=== PATIENT | male | born 1960 | race Caucasian/White ===

== ENCOUNTER 2017-05-01 13:08 | Emergency (ER) | payer OTHER, MEDICAID ==
[2017-05-01 13:24] VITALS: BP 120/79; PULSE 94; RESP 20; TEMP 97.5; O2SAT 96
--- NOTE | 2017-05-01 13:33 | EDPHY ---
H & P Stated Complaint: R FOOT AND L KNEE PAIN FOR MONTHS/HAS BEEN SEEN FOR SAME AT [place] HPI/ROS: CHIEF COMPLAINT: Left knee pain, right foot pain HISTORY OF PRESENT ILLNESS: Patient complains of left knee pain x3 weeks and right foot pain times several days. Left knee pain started he thinks after attempting to catch up with the bus. He felt a sudden onset of pain over the knee that is medial. It is worse with palpation and movement. He was seen at the [facility] with a reportedly normal x-ray. Since then his right foot is began to bother him. He is not sure when or how he hurt it but thinks that he did. He has no numbness or tingling. No fever chills. It is too severe to walk on. It has minimal improvement rest. Has not yet been evaluated for the foot. He has been taking ibuprofen and Tylenol without improvement. He was not referred to Orthopedics from [place]. No other associated complaints or modifying factors REVIEW OF SYSTEMS: Ten systems reviewed and are negative unless otherwise noted in the HPI PCP: [facility] SPECIALISTS: None PAST MEDICAL HISTORY: Traumatic brain injury, borderline personality, PTSD, depression, C2 radiculopathy, low back pain, porphyria, epilepsy PAST SURGICAL HISTORY: Craniotomy, maxillary fracture reconstruction, shoulder reconstruction, vats, left inguinal hernia repair SOCIAL HISTORY: Occasional smoker. Occasional alcohol. Occasional cocaine use. Currently homeless FAMILY HISTORY: Noncontributory EXAMINATION General Appearance: Alert, no distress, unkempt Head: normocephalic, atraumatic Eyes: Pupils equal and round, no conjunctival pallor or injection ENT, Mouth: Mucous membranes moist. Airway patent Respiratory: No retractions or distress. Cardiovascular: Regular rate. Brisk cap refill. Symmetric DP and PT pulses 2+ . Neurological: A&O, nonfocal, antalgic but steady gait. No foot drop. Normal proprioception of the right great toe. Skin: Warm and dry, no rash. No lacerations abrasions or contusions Extremities: Tenderness of the left knee medially and tenderness of the right midfoot over the 1st 3 metatarsals. The left knee exhibits no deformity. There is pain with valgus stress. No instability. Negative Chun and drawer test. Range of motion is intact and symmetric to the right leg. The right foot tenderness does not reveal any deformity. Range of motion of the ankle is intact. He is neurovascular intact distally there is a pain. Psychiatric: Mood and affect normal DIFFERENTIAL DIAGNOSES: Including but not limited to fracture, sprain, strain, contusion, MCL sprain, meniscus injury MDM: 1:33 p.m. Left knee pain of several weeks duration with a sprain injury, right foot pain of several days duration with unknown injury. He thinks that he heard but he does not know exactly when. He is neurovascular intact. I do not suspect that there are any acute fractures or dislocation, but I have ordered x-ray of the foot. X-ray of the knee has already been performed recently and I feel that he would not benefit from repeat x-ray. I discussed with counseling case manager to provide assistance as he is homeless. 2:00 p.m. X-ray as interpreted by me, without the aid of the radiologist reveals no acute fracture dislocation. I will order a Bharath boot for the right foot pain. Will place him in an Guillaume wrap on the left knee and provide crutches. Case management will see the patient to ensure that he has resources for his homeless status. Tomorrow the counseling case manager will be asked to follow up with him regarding his orthopedic appointment that I would like him to make with Dr. Briceno. He will be discharged home with ED precautions. Source: Patient Exam Limitations: No limitations - Personal History Current Tetanus/Diphtheria Vaccine: Unsure - Medical/Surgical History Hx Asthma: No Hx Chronic Respiratory Disease: No Hx Diabetes: No Hx Cardiac Disease: No Hx Renal Disease: No Hx Cirrhosis: No Hx Alcoholism: No Hx HIV/AIDS: No Hx Splenectomy or Spleen Trauma: No Other PMH: TBI - Social History Smoking Status: Current some day smoker Constitutional: Initial Vital Signs Temperature (C) 97.5 F 05/01/17 13:14 Heart Rate 94 05/01/17 13:14 Respiratory Rate 20 05/01/17 13:14 Blood Pressure 120/79 05/01/17 13:14 O2 Sat (%) 96 05/01/17 13:14 O2 Delivery Mode Room Air Allergies/Adverse Reactions: No Known Allergies Allergy (Unverified 05/01/17 13:10) Home Medications: Medication Instructions Recorded CYCLOBENZAPRINE HCL 05/01/17 Chlorpromazine HCl 05/01/17 GABAPENTIN 05/01/17 Ranitidine HCl 05/01/17 Departure - Departure Disposition: Home, Routine, Self-Care Clinical Impression: Sprain of foot, right Qualifiers: Encounter type: initial encounter Qualified Code(s): S93.601A - Unspecified sprain of right foot, initial encounter Left knee sprain Qualifiers: Encounter type: initial encounter Involved ligament of knee: other ligament Qualified Code(s): S83.8X2A - Sprain of other specified parts of left knee, initial encounter Condition: Good Instructions: Knee Sprain (ED), Foot Sprain (ED) Additional Instructions: 1. Ice and elevate the affected areas 2. Crutches for relief as needed 3. [place] boot for the right foot as needed 4. Tylenol for pain as needed Followup with the on-call orthopedist that we have referred you to, Dr. Briceno. Call and make sure to tell the scheduling staff that you were seen in the Emergency Department and make sure they are aware that Dr. Briceno was on- call at the time of your ED visit. If you have any issues getting an appointment , contact our Case Management department at ([phone]). Also, plan [facility] for [facility]. Referrals: [facility], [Other] - As per Instructions Bill Briceno MD [Medical Doctor] - As per Instructions
--- NOTE | 2017-05-01 16:42 | ASMTCMCOM ---
CM Note CM Note Notes: Spoke with patient about following up with the on-call orthopedist. Patient does not have a way to be contacted at this time but plans to get a phone tomorrow. Patient states he has been homeless for about 10 years and that he "jumps back and forth between [place] and [place]." Patient states he is a (former [employer]) and that [facility] [place]. Patient says he plans to take a bus to [place] tomorrow, get a cell phone, and call for ortho followup as soon as possible. This CM provided specific information in patient's discharge instructions and also provided ED CM contact number in case he has difficulty getting an appointment. Patient requested a bus pass so that he can get to the bus station and then he can take a bus to [place]. Bus pass provided. Provided patient with new updated information on local homeless halfway options but patient states "I've got a spot I rather stay." Date Signed: 05/01/2017 04:41 PM Electronically Signed By:Nichole Mcnulty RN
== END 2017-05-01 14:15 | disposition home or self-care (01) ==
DX: S93.601A Unspecified sprain of right foot, initial encounter (principal); S83.8X2A Sprain of other specified parts of left knee, initial encounter; F17.200 Nicotine dependence, unspecified, uncomplicated; X58.XXXA Exposure to other specified factors, initial encounter
CPT/HCPCS: L4386